=== PATIENT | male | born 1970 | race Caucasian/White ===

== ENCOUNTER 2025-05-29 20:06 | Outpatient (CLI) | payer OTHER, SELFPAY | END 2025-05-29 20:07 | disposition home or self-care (01) | PROVIDERS: Referring Provider Student in an Organized Health Care Education/Training Program; Visit Provider Internal Medicine Pulmonary Disease | DX: G47.33 Obstructive sleep apnea (adult) (pediatric) (principal); G47.61 Periodic limb movement disorder | CPT/HCPCS: 95810 ==